=== PATIENT | female | born 1975 | race Caucasian/White ===

== ENCOUNTER 2016-07-12 09:34 | Day surgery (SDC) | payer BC ==
[~2016-07-12 09:34] MED LIST: PROPOFOL INJ 200 MG/20 ML VIAL IV ONE
[2016-07-12 12:29] VITALS: BP 103/59
--- NOTE | 2016-07-12 13:12 | Operative Report ---
Operative Report DATE OF SURGERY: 07/12/16 Operative Report: The risks, benefits and alternatives of the procedure including risks of bleeding, perforation requiring surgery are explained to the patient detail and informed consent is obtained. Patient is brought back to the endoscopy suite. She is placed in a left, lateral decubital position. Timeout is called. Propofol medications administered. A rectal examination was done which did not reveal any masses, tears or fissures. An Olympus videoscope was inserted into the patient's rectum. The scope was then gradually advanced all the way to the cecum. The cecum as identified by the usual anatomical landmarks of the ileocecal valve as well as the appendiceal office. Photodocumentation was obtained. Prep is good. Scope was then sequentially pulled back creative rest segments of the colon including the ascending colon, hepatic flexure, transverse colon, splenic flexure, descending colon and finally into the rectosigmoid colon. Retroflexion maneuvers performed. PREOPERATIVE DIAGNOSIS: Heme-positive stool. Change of bowel habits. Family history of colorectal cancer POSTOPERATIVE DIAGNOSIS: Mild right-sided inflammation. Shallow biopsy obtained OPERATION: Colonoscopy with biopsy ANESTHESIA: LMAC TISSUE REMOVED OR ALTERED: Small specimen obtained to rule out lymphocytic, collagenous, microscopic colitis. COMPLICATIONS: None. ESTIMATED BLOOD LOSS: none. INTRAOPERATIVE FINDINGS: As described above. PROCEDURE: Patient tolerated the procedure well. No immediate postprocedure complications are noted. Patient is discharged in good condition. Discharge date 07/12/2016. Discharge diet: Regular. Discharge activity: Regular. Patient does have a 2-3 week follow-up to discuss findings. She is instructed to call the office or proceed to the emergency room after any further problems or questions. She is also instructed to use her intranasal DDAVP I'll call the patient if there are any abnormal findings on her biopsy report.
== END 2016-07-12 11:44 | disposition home or self-care (01) ==
LOC: END 09:34
PROVIDERS: ATTEND Internal Medicine Gastroenterology
PROC: 0DBF8ZX Excision of Right Large Intestine, Via Natural or Artificial Opening Endoscopic, Diagnostic (ICD-10-PCS; principal; 2016-07-12 12:00)
DX: R19.4 Change in bowel habit (principal); F17.210 Nicotine dependence, cigarettes, uncomplicated; K52.9 Noninfective gastroenteritis and colitis, unspecified; F90.9 Attention-deficit hyperactivity disorder, unspecified type; D68.0 Von Willebrand disease; Z79.899 Other long term (current) drug therapy; Z88.8 Allergy status to other drugs, medicaments and biological substances; Z80.0 Family history of malignant neoplasm of digestive organs
CPT/HCPCS: 45380; 88305 ×2; J2704; 810